=== PATIENT | female | born 1930 | race Asian ===

== ENCOUNTER 2017-09-08 09:30 | Inpatient (IN) | payer MEDICARE, OTHER ==
[~2017-09-08] VITALS: Ht 149.9 cm; Wt 48.4 kg
[~2017-09-08 09:30] MED LIST: ACET-48 PO; AMLO5TAB66 PO; ASPI-1198 PO; GLIP5TAB11 PO; PIOG45TA4 PO; SIMV20TA6 PO
[2017-09-08] MEDS ORDERED: METO25XL PO (09:38)
[2017-09-08] MEDS ORDERED: FURO40I IM (09:38)
[2017-09-08] MEDS ORDERED: LISI-662 PO (09:38)
[2017-09-08 09:48] LABS: GLUCOSE,POINT OF CARE 236 MG/DL (70-110)
[2017-09-08] MEDS ORDERED: SODIUM CHLORIDE 0.9% 100 ML ONE ×2 (10:08→21:29)
[2017-09-08] MEDS ORDERED: IOVERSOL 350 MG/ML 100 ML VIAL ONE (10:08)
[2017-09-08 10:09] LABS: BASOPHILS % (AUTO) 0.9 % (0.0-2.0); EOSINOPHILS % (AUTO) 2.1 % (1.0-6.0); HEMATOCRIT 22.7 % (36-46); HEMOGLOBIN 7.2 g/dL (12.0-16.0); LYMPHOCYTES # (AUTO) 2.6 K/uL (1.0-4.8); LYMPHOCYTES % (AUTO) 28.1 % (22.0-44.0); MEAN CORPUSCULAR HGB CONC 31.5 G/dL (31.0-37.0); MEAN CORPUSCULAR VOLUME 70 fL (80-100); MONOCYTES # (AUTO) 0.7 K/uL (0.1-1.0); MONOCYTES % (AUTO) 7.9 % (2.0-9.0); NEUTROPHILS # (AUTO) 5.6 K/uL (1.8-7.7); PLATELET COUNT (AUTO) 182 K/uL (150-450); RED BLOOD CELL COUNT(AUTO) 3.25 MIL/uL (4.00-5.20)
[2017-09-08 10:22] LABS: CREATININE 2.48 mg/dL (0.60-1.30); POTASSIUM 5.1 mmol/L (3.5-5.1)
[2017-09-08 10:28] LABS: ALBUMIN 3.1 g/dL (3.4-5.0); BILIRUBIN,TOTAL 0.3 mg/dL (0.1-1.0); TOTAL PROTEIN, SERUM 7.6 g/dL (6.4-8.2)
[2017-09-08] MEDS ORDERED: NITROGLYCERIN 2% (1 GM=INCH) PACKET TP ONE (11:45)
[2017-09-08] MEDS ORDERED: FUROSEMIDE 40 MG/4 ML VIAL IVP ONE (11:45)
[2017-09-08] MEDS ORDERED: ASPIRIN 81 MG CHEWABLE TABLET PO ONE (11:45)
[2017-09-08] MEDS ORDERED: ACETAMINOPHEN 325 MG TABLET PO PRN (12:15)
[2017-09-08] MEDS ORDERED: ONDANSETRON HCL 4 MG/2 ML VIAL IVP PRN ×2 (12:15→15:30)
[2017-09-08 14:00] VITALS: BP 147/72
[2017-09-08 14:54] VITALS: BP 145/71
[2017-09-08] MEDS ORDERED: ACETAMINOPHEN 500 MG TABLET PO PRN (15:30)
[2017-09-08] MEDS ORDERED: ZOLPIDEM TARTRATE 5 MG TABLET PO PRN (15:30)
[2017-09-08] MEDS ORDERED: MORPHINE SULFATE 2 MG/ML SYRINGE IVP PRN (15:30)
[2017-09-08] MEDS ORDERED: FUROSEMIDE 40 MG/4 ML VIAL IM SCH (15:30)
[2017-09-08] MEDS: METOPROLOL SUCCINATE 25 MG ER TABLET PO SCH (15:30)
[2017-09-08] MEDS ORDERED: GLUCAGON,HUMAN RECOMBINANT 1 MG VIAL IM PRN (15:45)
[2017-09-08] MEDS ORDERED: INSULIN LISPRO 100 UNITS/ML SQ PRN (15:45)
[2017-09-08] MEDS ORDERED: FUROSEMIDE 40 MG TABLET PO SCH (16:02)
[2017-09-08] MEDS: PANTOPRAZOLE SODIUM 40 MG/VIAL IVP SCH (16:27)
[2017-09-08] MEDS: MORPHINE SULFATE 4 MG/ML SYRINGE IVP PRN ×2 (16:28→21:41)
[2017-09-08] MEDS: FUROSEMIDE 40 MG/4 ML VIAL IVP SCH (16:28)
[2017-09-08] MEDS: LISINOPRIL 20 MG TABLET PO SCH (16:28)
[2017-09-08] MEDS: PIOGLITAZONE HCL 45 MG TABLET PO SCH (16:28)
[2017-09-08] MEDS: ASPIRIN 81 MG CHEWABLE TABLET PO SCH (16:28)
[2017-09-08] MEDS: AmLODIPine BESYLATE 5 MG TABLET PO SCH (16:28)
[2017-09-08 16:36] VITALS: BP 148/72
[2017-09-08 19:56] VITALS: BP 133/63
[2017-09-08 19:58] LABS: GLUCOMETER DEV NAME(LOC) 5N 2S; GLUCOSE,POINT OF CARE 117 MG/DL (70-110)
[2017-09-08] MEDS: DOCUSATE SODIUM 100 MG CAPSULE PO SCH (20:27)
[2017-09-08] MEDS: SIMVASTATIN 20 MG TABLET PO SCH (20:27)
[2017-09-08] MEDS: GlipiZIDE 5 MG TABLET PO SCH (20:27)
[2017-09-08] MEDS ORDERED: DEXTROSE 50%-WATER 25 GM/50 ML SYG IVP PRN (21:15)
[2017-09-08] MEDS ORDERED: IOVERSOL 320 MG/ML 100 ML VIAL ONE (21:29)
[2017-09-08 21:37] VITALS: BP 130/65
[2017-09-08 23:07] VITALS: BP 130/61
[2017-09-09] VITALS (16 sets, daily range): BP systolic 111–153; BP diastolic 52–71
[2017-09-09 01:48] LABS: GLUCOMETER DEV NAME(LOC) 5N 1P; GLUCOSE,POINT OF CARE 152 MG/DL (70-110)
[2017-09-09] MEDS: PIOGLITAZONE HCL 45 MG TABLET PO SCH (08:50)
[2017-09-09] MEDS: METOPROLOL SUCCINATE 25 MG ER TABLET PO SCH (08:51)
[2017-09-09] MEDS: AmLODIPine BESYLATE 5 MG TABLET PO SCH (08:51)
[2017-09-09] MEDS: PANTOPRAZOLE SODIUM 40 MG/VIAL IVP SCH (08:51)
[2017-09-09] MEDS: DOCUSATE SODIUM 100 MG CAPSULE PO SCH ×2 (08:51→20:28)
[2017-09-09] MEDS: LISINOPRIL 20 MG TABLET PO SCH (08:51)
[2017-09-09] MEDS: ASPIRIN 81 MG CHEWABLE TABLET PO SCH (08:51)
[2017-09-09] MEDS: GlipiZIDE 5 MG TABLET PO SCH ×2 (08:51→20:28)
[2017-09-09] MEDS: FUROSEMIDE 40 MG/4 ML VIAL IVP SCH (08:51)
[2017-09-09] MEDS: INSULIN LISPRO 100 UNITS/ML SQ PRN (11:53)
[2017-09-09 14:36] LABS: BASOPHILS % (AUTO) 0.7 % (0.0-2.0); EOSINOPHILS % (AUTO) 1.6 % (1.0-6.0); HEMATOCRIT 22.1 % (36-46); LYMPHOCYTES # (AUTO) 2.5 K/uL (1.0-4.8); LYMPHOCYTES % (AUTO) 20.6 % (22.0-44.0); MEAN CORPUSCULAR HEMOGLOBIN 21.7 pg (26.0-34.0); MEAN CORPUSCULAR HGB CONC 30.6 G/dL (31.0-37.0); MEAN CORPUSCULAR VOLUME 71 fL (80-100); MONOCYTES # (AUTO) 0.9 K/uL (0.1-1.0); MONOCYTES % (AUTO) 7.6 % (2.0-9.0); NEUTROPHILS # (AUTO) 8.4 K/uL (1.8-7.7); NEUTROPHILS % (AUTO) 69.5 % (40.0-70.0); PLATELET COUNT (AUTO) 174 K/uL (150-450); RED BLOOD CELL COUNT(AUTO) 3.11 MIL/uL (4.00-5.20); RED CELL DISTRIBUTION WIDTH 15.5 % (11.5-14.5)
[2017-09-09 14:42] LABS: CALCIUM, TOTAL 8.7 mg/dL (8.8-10.5); CREATININE 2.72 mg/dL (0.60-1.30); POTASSIUM 4.8 mmol/L (3.5-5.1)
[2017-09-09 14:43] LABS: HEMOGLOBIN 6.7 g/dL (12.0-16.0)
[2017-09-09] MEDS ORDERED: SODIUM CHLORIDE 0.9% 500 ML IV ONE (18:10)
[2017-09-09 20:18] LABS: GLUCOMETER DEV NAME(LOC) 5N 1P; GLUCOSE,POINT OF CARE 81 MG/DL (70-110)
[2017-09-09 20:18] LABS: GLUCOMETER DEV NAME(LOC) 5N 1P; GLUCOSE,POINT OF CARE 109 MG/DL (70-110)
[2017-09-09] MEDS: SIMVASTATIN 20 MG TABLET PO SCH (20:28)
[2017-09-09 23:28] LABS: GLUCOMETER DEV NAME(LOC) 5N 2S; GLUCOSE,POINT OF CARE 180 MG/DL (70-110)
[2017-09-10 04:32] VITALS: BP 125/57
[2017-09-10 06:45] LABS: BASOPHILS % (AUTO) 0.5 % (0.0-2.0); EOSINOPHILS % (AUTO) 4.2 % (1.0-6.0); HEMOGLOBIN 8.3 g/dL (12.0-16.0); LYMPHOCYTES # (AUTO) 2.5 K/uL (1.0-4.8); LYMPHOCYTES % (AUTO) 35.7 % (22.0-44.0); MEAN CORPUSCULAR HEMOGLOBIN 23.2 pg (26.0-34.0); MEAN CORPUSCULAR HGB CONC 32.1 G/dL (31.0-37.0); MEAN CORPUSCULAR VOLUME 72 fL (80-100); MONOCYTES # (AUTO) 0.8 K/uL (0.1-1.0); NEUTROPHILS # (AUTO) 3.3 K/uL (1.8-7.7); NEUTROPHILS % (AUTO) 48.6 % (40.0-70.0); PLATELET COUNT (AUTO) 173 K/uL (150-450); RED CELL DISTRIBUTION WIDTH 17.5 % (11.5-14.5)
[2017-09-10 07:01] LABS: CALCIUM, TOTAL 7.8 mg/dL (8.8-10.5); CREATININE 3.18 mg/dL (0.60-1.30); MAGNESIUM 2.4 mg/dL (1.80-2.40); POTASSIUM 5.2 mmol/L (3.5-5.1)
[2017-09-10 08:01] VITALS: BP 133/62
[2017-09-10] MEDS: PANTOPRAZOLE SODIUM 40 MG/VIAL IVP SCH (08:05)
[2017-09-10] MEDS: LISINOPRIL 20 MG TABLET PO SCH (08:06)
[2017-09-10] MEDS: AmLODIPine BESYLATE 5 MG TABLET PO SCH (08:06)
[2017-09-10] MEDS: PIOGLITAZONE HCL 45 MG TABLET PO SCH (08:06)
[2017-09-10] MEDS: DOCUSATE SODIUM 100 MG CAPSULE PO SCH ×2 (08:06→20:50)
[2017-09-10] MEDS: ASPIRIN 81 MG CHEWABLE TABLET PO SCH (08:06)
[2017-09-10] MEDS: GlipiZIDE 5 MG TABLET PO SCH ×2 (08:08→20:49)
[2017-09-10] MEDS: METOPROLOL SUCCINATE 25 MG ER TABLET PO SCH (08:12)
[2017-09-10 09:24] LABS: GLUCOMETER DEV NAME(LOC) 5N 1P; GLUCOSE,POINT OF CARE 164 MG/DL (70-110)
[2017-09-10 09:24] LABS: GLUCOMETER DEV NAME(LOC) 5N 1P; GLUCOSE,POINT OF CARE 94 MG/DL (70-110)
[2017-09-10 11:23] LABS: GLUCOMETER DEV NAME(LOC) 5N 1P; GLUCOSE,POINT OF CARE 190 MG/DL (70-110)
[2017-09-10 11:44] VITALS: BP 139/65
[2017-09-10] MEDS: INSULIN LISPRO 100 UNITS/ML SQ PRN ×3 (11:51→20:49)
[2017-09-10 15:59] VITALS: BP 127/58
[2017-09-10 17:26] LABS: APPEARANCE,URINE CLEAR (CLEAR); BILIRUBIN,URINE NEGATIVE (NEGATIVE); GLUCOSE, URINE (UA) NEGATIVE (NEGATIVE); KETONES,URINE NEGATIVE (NEGATIVE); LEUKOCYTE ESTERASE ,URINE SMALL (NEGATIVE); NITRATE,URINE NEGATIVE (NEGATIVE); OCCULT BLOOD,URINE NEGATIVE (NEGATIVE); PROTEIN,URINE POS 1+ (NEGATIVE); UROBILINOGEN,URINE 0.2 mg/dL (<=1.0)
[2017-09-10 17:27] LABS: CREATININE,URINE RANDOM 86.4 mg/dL (30.0-125.0); POTASSIUM,URINE RANDOM 35 mmol/L (12-75); SODIUM,URINE RANDOM 31 mmol/l (20-110); UREA NITROGEN,URINE RANDOM 416 mg/dL (350-1000)
[2017-09-10 17:37] LABS: RBC,URINE None Seen /HPF (0-2)
[2017-09-10 17:38] LABS: BACTERIA,URINE Rare /HPF (None Seen); SQUAMOUS EPITHELIAL CELL,UR Rare /LPF (None Seen)
[2017-09-10 17:40] LABS: TRANSITIONAL EPI CELLS,URINE Rare /LPF (None Seen)
[2017-09-10 18:50] LABS: GLUCOMETER DEV NAME(LOC) 5N 1P; GLUCOSE,POINT OF CARE 146 MG/DL (70-110)
[2017-09-10 20:17] VITALS: BP 133/73
[2017-09-10] MEDS: SIMVASTATIN 20 MG TABLET PO SCH (20:50)
[2017-09-10 23:31] VITALS: BP 128/59
[2017-09-11 04:16] VITALS: BP 125/65
[2017-09-11 05:20] LABS: GLUCOMETER DEV NAME(LOC) 5N 2S; GLUCOSE,POINT OF CARE 79 MG/DL (70-110)
[2017-09-11] MEDS: INSULIN LISPRO 100 UNITS/ML SQ PRN ×4 (05:53→21:14)
[2017-09-11 06:27] LABS: GLUCOMETER DEV NAME(LOC) 5N 1P; GLUCOSE,POINT OF CARE 94 MG/DL (70-110)
[2017-09-11 06:56] LABS: % IRON SATURATION 13.2 % (22-44)
[2017-09-11 07:27] VITALS: BP 114/62
[2017-09-11 07:54] LABS: BASOPHILS % (AUTO) 0.5 % (0.0-2.0); EOSINOPHILS % (AUTO) 3.4 % (1.0-6.0); HEMATOCRIT 25.9 % (36-46); HEMOGLOBIN 8.4 g/dL (12.0-16.0); LYMPHOCYTES # (AUTO) 2.6 K/uL (1.0-4.8); LYMPHOCYTES % (AUTO) 32.2 % (22.0-44.0); MEAN CORPUSCULAR HEMOGLOBIN 23.5 pg (26.0-34.0); MEAN CORPUSCULAR HGB CONC 32.4 G/dL (31.0-37.0); MEAN CORPUSCULAR VOLUME 72 fL (80-100); MONOCYTES # (AUTO) 0.8 K/uL (0.1-1.0); MONOCYTES % (AUTO) 9.7 % (2.0-9.0); NEUTROPHILS # (AUTO) 4.4 K/uL (1.8-7.7); NEUTROPHILS % (AUTO) 54.2 % (40.0-70.0); PLATELET COUNT (AUTO) 161 K/uL (150-450); RED BLOOD CELL COUNT(AUTO) 3.58 MIL/uL (4.00-5.20); RED CELL DISTRIBUTION WIDTH 17.4 % (11.5-14.5)
[2017-09-11 07:58] LABS: CREATININE 4.37 mg/dL (0.60-1.30)
[2017-09-11] MEDS: GlipiZIDE 5 MG TABLET PO SCH ×2 (08:25→21:05)
[2017-09-11] MEDS: DOCUSATE SODIUM 100 MG CAPSULE PO SCH ×2 (08:25→21:05)
[2017-09-11] MEDS: AmLODIPine BESYLATE 5 MG TABLET PO SCH (08:25)
[2017-09-11] MEDS: ASPIRIN 81 MG CHEWABLE TABLET PO SCH (08:25)
[2017-09-11] MEDS: PIOGLITAZONE HCL 45 MG TABLET PO SCH (08:25)
[2017-09-11] MEDS: PANTOPRAZOLE SODIUM 40 MG/VIAL IVP SCH (08:26)
[2017-09-11] MEDS: METOPROLOL SUCCINATE 25 MG ER TABLET PO SCH (09:00)
[2017-09-11 09:38] LABS: VITAMIN D,TOTAL (25-0H) 26 ng/mL (30-100)
[2017-09-11 09:39] LABS: VITAMIN B12 LEVEL 637 pg/mL (211-911)
[2017-09-11 11:17] VITALS: BP 146/81
[2017-09-11 11:55] LABS: GLUCOMETER DEV NAME(LOC) 5N 1P; GLUCOSE,POINT OF CARE 158 MG/DL (70-110)
[2017-09-11] MEDS: CHOLECALCIFEROL (VIT D3) 1,000 UNITS TABLET PO SCH (14:53)
[2017-09-11 15:16] VITALS: BP 130/64
[2017-09-11 19:38] VITALS: BP 145/66
[2017-09-11] MEDS: SIMVASTATIN 20 MG TABLET PO SCH (21:05)
[2017-09-11 23:38] VITALS: BP 129/65
[2017-09-12 03:18] LABS: GLUCOMETER DEV NAME(LOC) 5N 1P; GLUCOSE,POINT OF CARE 169 MG/DL (70-110)
[2017-09-12 04:53] VITALS: BP 146/67
[2017-09-12 07:06] LABS: CALCIUM, TOTAL 7.8 mg/dL (8.8-10.5); CREATININE 5.13 mg/dL (0.60-1.30); POTASSIUM 5.2 mmol/L (3.5-5.1)
[2017-09-12] MEDS: ASPIRIN 81 MG CHEWABLE TABLET PO SCH (08:09)
[2017-09-12] MEDS: METOPROLOL SUCCINATE 25 MG ER TABLET PO SCH (08:09)
[2017-09-12] MEDS: CHOLECALCIFEROL (VIT D3) 1,000 UNITS TABLET PO SCH (08:09)
[2017-09-12] MEDS: PANTOPRAZOLE SODIUM 40 MG DR TABLET PO SCH (08:09)
[2017-09-12] MEDS: GlipiZIDE 5 MG TABLET PO SCH (08:09)
[2017-09-12] MEDS: DOCUSATE SODIUM 100 MG CAPSULE PO SCH ×2 (08:09→20:24)
[2017-09-12] MEDS: AmLODIPine BESYLATE 5 MG TABLET PO SCH (08:09)
[2017-09-12 08:59] VITALS: BP 148/65
[2017-09-12 11:42] VITALS: BP 139/63
[2017-09-12 14:39] LABS: GLUCOMETER DEV NAME(LOC) 5N 2S; GLUCOSE,POINT OF CARE 188 MG/DL (70-110)
[2017-09-12 14:39] LABS: GLUCOMETER DEV NAME(LOC) 5N 2S; GLUCOSE,POINT OF CARE 121 MG/DL (70-110)
[2017-09-12 16:02] VITALS: BP 148/66
[2017-09-12 17:53] LABS: GLUCOMETER DEV NAME(LOC) 5N 1P; GLUCOSE,POINT OF CARE 226 MG/DL (70-110)
[2017-09-12 17:53] LABS: GLUCOMETER DEV NAME(LOC) 5N 1P; GLUCOSE,POINT OF CARE 203 MG/DL (70-110)
[2017-09-12] MEDS: INSULIN LISPRO 100 UNITS/ML SQ PRN (18:00)
[2017-09-12 20:11] VITALS: BP 144/72
[2017-09-12] MEDS: SIMVASTATIN 20 MG TABLET PO SCH (20:24)
[2017-09-12] MEDS: CITRIC ACID/SODIUM CITRATE 30 ML SOLUTION UDCUP PO SCH (20:24)
[2017-09-12] MEDS ORDERED: GlipiZIDE 5 MG TABLET PO SCH (21:00)
[2017-09-12 23:27] VITALS: BP 132/64
[2017-09-13 04:14] VITALS: BP 142/62
[2017-09-13] MEDS ORDERED: GlipiZIDE 5 MG TABLET PO SCH (06:30)
[2017-09-13 07:38] LABS: GLUCOMETER DEV NAME(LOC) 5N 1P; GLUCOSE,POINT OF CARE 110 MG/DL (70-110)
[2017-09-13 07:39] VITALS: BP 152/78
[2017-09-13 07:58] LABS: BAND NEUTROPHILS % (MANUAL) 0 % (0-5)
[2017-09-13 08:01] LABS: HEMATOCRIT 25.8 % (36-46); HEMOGLOBIN 8.3 g/dL (12.0-16.0); MEAN CORPUSCULAR HEMOGLOBIN 23.1 pg (26.0-34.0); MEAN CORPUSCULAR HGB CONC 32.3 G/dL (31.0-37.0); MEAN CORPUSCULAR VOLUME 72 fL (80-100); PLATELET COUNT (AUTO) 169 K/uL (150-450); RED BLOOD CELL COUNT(AUTO) 3.61 MIL/uL (4.00-5.20); RED CELL DISTRIBUTION WIDTH 18.1 % (11.5-14.5)
[2017-09-13] MEDS: CITRIC ACID/SODIUM CITRATE 30 ML SOLUTION UDCUP PO SCH (08:15)
[2017-09-13] MEDS: PANTOPRAZOLE SODIUM 40 MG DR TABLET PO SCH (08:15)
[2017-09-13] MEDS: DOCUSATE SODIUM 100 MG CAPSULE PO SCH (08:15)
[2017-09-13] MEDS: CHOLECALCIFEROL (VIT D3) 1,000 UNITS TABLET PO SCH (08:15)
[2017-09-13] MEDS: AmLODIPine BESYLATE 5 MG TABLET PO SCH (08:15)
[2017-09-13] MEDS: ASPIRIN 81 MG CHEWABLE TABLET PO SCH (08:15)
[2017-09-13] MEDS: METOPROLOL SUCCINATE 25 MG ER TABLET PO SCH (08:15)
[2017-09-13 08:36] LABS: CALCIUM, TOTAL 8.2 mg/dL (8.8-10.5); CREATININE 5.05 mg/dL (0.60-1.30); MAGNESIUM 2.8 mg/dL (1.80-2.40); PHOSPHORUS 6.3 mg/dL (2.5-4.9); POTASSIUM 5.5 mmol/L (3.5-5.1)
[2017-09-13 08:39] LABS: EOSINOPHILS % (MANUAL) 1 % (1-6); LYMPHOCYTES % (MANUAL) 24 % (22-44); MONOCYTES % (MANUAL) 1 % (2-9); SEGMENTED NEUTROPHILS % 74 % (40-70)
[2017-09-14 07:28] LABS: GLUCOMETER DEV NAME(LOC) 5N 2S; GLUCOSE,POINT OF CARE 70 MG/DL (70-110)
== END 2017-09-13 09:20 | disposition left against medical advice (07) | DRG 291 ==
LOC: EMS 09:31 → 5N 12:07
PROVIDERS: ADMIT Internal Medicine; ATTEND Internal Medicine
PROC: 30233N1 Transfusion of Nonautologous Red Blood Cells into Peripheral Vein, Percutaneous Approach (ICD-10-PCS; principal; 2017-09-09)
DX: I13.0 Hypertensive heart and chronic kidney disease with heart failure and stage 1 through stage 4 chronic kidney disease, or unspecified chronic kidney disease (principal); E43 Unspecified severe protein-calorie malnutrition; I50.33 Acute on chronic diastolic (congestive) heart failure; N18.4 Chronic kidney disease, stage 4 (severe); N17.9 Acute kidney failure, unspecified; Z53.21 Procedure and treatment not carried out due to patient leaving prior to being seen by health care provider; E11.22 Type 2 diabetes mellitus with diabetic chronic kidney disease; E78.00 Pure hypercholesterolemia, unspecified; E78.5 Hyperlipidemia, unspecified; I08.1 Rheumatic disorders of both mitral and tricuspid valves; D63.8 Anemia in other chronic diseases classified elsewhere; D63.1 Anemia in chronic kidney disease; Z68.21 Body mass index [BMI] 21.0-21.9, adult
CPT/HCPCS: 36430; 71275; 76770; 82306; 82570; 82607; 82652; 82948; 83540; 83550; 83735; 83970; 84100; 84133; 84300; 84540; 85007; 85379; 86850; 86900; 86901; 86920; 87086; 87147; 93005; 93306; 96374; 99291; C9113; J1940; J2270; J7040; J7050; P9016